=== PATIENT | male | born 1995 | race Caucasian/White ===

== ENCOUNTER → 2018-06-20 | Outpatient (CLI) | payer MEDICARE, MEDICAID ==
--- NOTE | 2018-06-20 22:14 | RADIOLOGY REPORT (SQ) ---
EXAM DESCRIPTION: XR RIGHT 5th FINGER COMPLETED DATE/TME: 06/20/2018 19:57 CLINICAL HISTORY: 22 years, Male, dislocated fifth finger playing football and relocated it himself COMPARISON: None. NUMBER OF VIEWS: TECHNIQUE: LIMITATIONS: None. FINDINGS: No fracture or dislocation. There is soft tissue swelling. Mineralization of bone appears normal. IMPRESSION: No fracture or dislocation. copyright 2010 [employer]- All Rights Reserved
--- NOTE | 2018-06-22 13:03 | RADIOLOGY REPORT (SQ) ---
EXAM DESCRIPTION: HAND RIGHT 3 VIEWS COMPLETED DATE/TIME: 06/22/2018 12:16 pm REASON FOR STUDY: S69.91 FRACTURE OF RIGHT HAND COMPARISON: None. EXAM PARAMETERS: NUMBER OF VIEWS: Three views. TECHNIQUE: AP, lateral and oblique radiographic images acquired of the right hand. LIMITATIONS: Due to patient positioning. FINDINGS: MINERALIZATION: Normal. BONES: No acute fracture or dislocation. No worrisome bone lesions. JOINTS: No effusions. SOFT TISSUES: Soft tissue swelling. No foreign body. OTHER: No other significant finding. IMPRESSION: 1. Soft tissue swelling. 2. No acute osseous findings. TECHNICAL DOCUMENTATION: JOB ID: [id number] [employer]- All Rights Reserved Reading location - IP/workstation name: [email or web address]
== END ==
LOC: RAD 19:49
PROVIDERS: ATTEND Psychiatry & Neurology Psychiatry
DX: S63.250A Unspecified dislocation of right index finger, initial encounter (principal); X58.XXXA Exposure to other specified factors, initial encounter; Y93.61 Activity, american tackle football

== ENCOUNTER → 2018-06-22 | Outpatient (CLI) | payer MEDICARE, MEDICAID | LOC: RAD 11:13 | PROVIDERS: ATTEND Nurse Practitioner Psychiatric/Mental Health | DX: S62.91XA Unspecified fracture of right hand, initial encounter for closed fracture (principal); Z53.9 Procedure and treatment not carried out, unspecified reason ==